=== PATIENT | female | born 1960 | race Caucasian/White ===

== ENCOUNTER 2019-03-05 20:11 | Inpatient (IN) | payer MEDICAID ==
[~2019-03-05] VITALS: Ht 167.6 cm; Wt 94.8 kg
--- NOTE | 2019-03-05 20:29 | NUR ---
TAKEN TO BED 8 FOR BEDSIDE TRIAGE
[2019-03-05 21:29] LABS: BASOPHIL % 0.4 % (0-2); PLATELET COUNT 164 x10^3mcL (130-400); RED CELL DISTRIBUTION WIDTH 13.6 % (11.5-14.5)
[2019-03-05 21:40] LABS: CALCIUM 9.5 mg/dL (8.5-10.1); CARBON DIOXIDE 25.7 mmol/L (21-32); CHLORIDE SERUM 101 mmol/L (98-107); CREATININE SERUM 0.8 mg/dL (0.6-1.0); GFR1 > 60 mL/min; GLUCOSE SERUM 115 mg/dL (74-106); POTASSIUM SERUM 3.4 mmol/L (3.5-5.1); SODIUM SERUM 136 mmol/L (136-145)
[2019-03-05 21:45] LABS: ALBUMIN 3.7 g/dL (3.4-5.0); ALKALINE PHOSPHATASE 89 U/L (46-116); ALT/SGPT 41 U/L (14-59); BILIRUBIN TOTAL 0.3 mg/dL (0.20-1.00); TOTAL PROTEIN, SERUM 8.2 g/dL (6.4-8.2)
[2019-03-05 21:57] LABS: AST/SGOT 38 U/L (15-37)
--- NOTE | 2019-03-05 22:15 | NUR ---
SALINE LOCK INSERTED. FLUID IS INFUSING. PATIENT WAS MEDICATED WITH SOLUMEDRAL.
--- NOTE | 2019-03-05 22:45 | NUR ---
PATIENT COMPLETED #2 BREATHING TREATMENT. NASAL SWAB WAS DONE FOR INFLUENZA.
--- NOTE | 2019-03-05 23:44 | NUR ---
REPORT WAS GIVENT Mau BARNES. PATIENT TRANSPORTED TO ROOM 206B.
[2019-03-05] MEDS ORDERED: LIPITOR10 MG PO (23:45)
[2019-03-05] MEDS ORDERED: PROVENTIL0.09 MG/A1 INH (23:45)
[2019-03-05] MEDS ORDERED: ALBUTEROL1.25 MG/3 NEB (23:46)
[2019-03-06] VITALS (7 sets, daily range): BP systolic 120–158; BP diastolic 66–97; Ht 167.6 cm; Wt 94.8 kg
--- NOTE | 2019-03-06 00:05 | NUR ---
RECEIVED PT FROM ED VIA [employer], CAME IN DUE TO SOB, FEVER AND COUGH X2 DAYS. AAOX4. DENIES HEADACHE/DIZZINESS. ABLE TO FOLLOW COMMANDS. SOB WORSE ON AMBULATION, WHEN PATIENT AMBULATED, O2 SAT=87-89%. WHEN PT SAT DOWN ON THE BED, O2 SAT=98%, RA. PT WAS INITIALLY PLACED ON 2LPM/NC BUT STATED THAT SHE DOES NOT FEEL COMFORTABLE WITH THE OXYGEN, PLACED BACK ON RA, O2 SAT REMAINS AT 97-98%. AUDIBLE WHEEZES NOTED WHEN PT WAS AMBULATING. CRACKLES NOTED ON AUSCULTATION. PRODUCTIVE COUGH NOTED, ABLE TO EXPECTORATE WHITE PHLEGM BY COUGHING. DENIES CHEST PAIN/PRESSURE, SINUS TACHYCARDIA ON THE MONITOR, HR AT 107. DENIES ABDOMINAL DISCOMFORT. VOIDS. IV SITE PATENT AND INTACT. SIDE RAILS UPX2. CALL LIGHT ON REACH. ENDORSED TO PRIMARY NURSE CAMERON FOR CONTINUITY OF CARE
[2019-03-06 00:31] LABS: CHOLESTEROL 185 mg/dL (<200); CHOLESTEROL/HDL RATIO 4.3; HDL CHOLESTEROL 43 mg/dL (40-60)
[2019-03-06 00:34] LABS: TRIGLYCERIDES 529 mg/dL (<150)
[2019-03-06 04:53] LABS: microscopic required? NO
[2019-03-06 05:19] LABS: urine erythrocyte NEGATIVE (NEGATIVE)
[2019-03-06 05:27] LABS: AMPHETAMINE QUAL UR NONE DETECTED (See below)
--- NOTE | 2019-03-06 05:45 | NUR ---
PT C/O 10 BACK AND LEG PAIN AT THIS TIME, REQUESTING PRN NORCO. PT STATES SHE HAS TAKEN NORCO BEFORE, DESPITE ACETAMINOPHEN CODED ALLERGY. PT EDUCATED TO ALERT RN REGARDING AND S&S OF ALLERGIC REACTION. PT AGREED. WILL MEDICATE PER EMAR
--- NOTE | 2019-03-06 06:01 | NUR ---
NO SIGNIFICANT CHANGES TO REPORT, PT COMPLIED WITH NURSING CARE THROUGHOUT THE SHIFT WITH NO ACUTE EVENTS OVERNIGHT. COMFORT AND SAFETY MEASURES MAINAINTED. ALL NEEDS ASSESSED AND ATTENDED TO. CALL LIGHT WITHIN REACH. WILL CONTINUE TO MONITOR AND ENDORSE CARE TO DAY SHIFT NURSE
[2019-03-06 06:27] LABS: BASOPHIL % 0.2 % (0-2); PLATELET COUNT 169 x10^3mcL (130-400)
[2019-03-06 07:03] LABS: CALCIUM 9.1 mg/dL (8.5-10.1); CARBON DIOXIDE 18.2 mmol/L (21-32); CHLORIDE SERUM 103 mmol/L (98-107); CREATININE SERUM 0.9 mg/dL (0.6-1.0); GFR1 > 60 mL/min; GLUCOSE SERUM 207 mg/dL (74-106); MAGNESIUM 1.9 mg/dL (1.8-2.4); PHOSPHOROUS 2.8 mg/dL (2.5-4.9); POTASSIUM SERUM 3.6 mmol/L (3.5-5.1); SODIUM SERUM 138 mmol/L (136-145)
--- NOTE | 2019-03-06 07:21 | NUR ---
REPORT GIVEN TO SIMBA CHANCE. ALL QUESTIONS AND CONCERNS ADDRESSED. ALL CARES ENDORSED
--- NOTE | 2019-03-06 07:30 | NUR ---
RECEIVED HAND OFF REPORT FORM SIMBA BARNES. PATIENT SITTING UP IN BED, A/O X4. NO COMPLAINTS. PAITENT STATES THAT HER BREATHING IS BETTER, BUT STILL GETS SHORT OF BREATH WHEN WALKING. NO WEAKNESS REPORTED. TELE 11 PRESENT ON CHEST SHOWING NSR. CALL LIGHT WITHIN REACH, EDUCATED PATIENT TO USE CALL LIGHT WHEN NEEDING TO AMBULATE FOR ASSISTANCE
--- NOTE | 2019-03-06 09:45 | NUR ---
ADMINSTERED MEDICATION PER MAY. ORDER FOR TRANSFER TO MEDR UNIT. REMOVED TELE 11 FROM PATIENT AND TAKEN TO [employer]. ASSISTED PATIENT TO SIT UP HIGH IN BED. PATIENT STATES THAT HER FAMILY IS SICK AT HOME WITH COLDS AND THIS HAS MADE HER COPD WORSE. STATES THAT BREATHING REMAINS TO BE TOLLERABLE WHEN RESTING. CALL LIGHT WITHIN REACH
--- NOTE | 2019-03-06 14:27 | NUR ---
ADMINSTERED MEDICATIONS PER MAR. PATIENT BREATHING WELL BUT COMPLAINING OF LOWER BACK PAIN. MEDICATED WITH PRN NORCO. ASSITED PATIENT TO SIT HIGH IN BED FOR EASE OF BREATHING
--- NOTE | 2019-03-06 19:25 | NUR ---
PATIENT SITTING UP IN BED. GAVE HAND OFF REPORT TO NIGHT NURSE. QUESTIONS ANSWERED, CARE ENDORSE
--- NOTE | 2019-03-06 19:25 | NUR ---
PT RECEIVED SITTING UP IN BED WITH SON AT BEDSIDE. PT A/O X4, ABLE TO MAKE NEEDS KNOWN. MED-SURG, NO TELE, PT DENIES ANY CP/PRESSURE. PULSES PALPABLE, NO EDEMA PRESENT. BREATHING IS EVEN AND UNLABORED ON RA, PT REPORTS SOB UPON EXERTION, BUT DENIES ANY AT THIS TIME. ABD SOFT AND ROUND, DENIES N/V. VOIDS FREELY, BRP. AMBULATORY WITH STEADY GAIT. SKIN IS WARM AND DRY, INTACT. PT DENIES HAVING ANY PAIN AT THIS TIME. SL TO LH, PATENT AND INTACT. NO ACUTE DISTRESS NOTED. BED IN LOWEST SETTING, SIDE RAILS UP X2, CALL LIGHT WITHIN REACH. WILL CONT TO MONITOR.
--- NOTE | 2019-03-06 21:18 | NUR ---
PT C/O 10/10 BACKPAIN, PRN NORCO GIVEN PER EMAR. NO ACUTE DISTRESS NOTED. WILL CONT TO MONITOR.
--- NOTE | 2019-03-07 01:00 | NUR ---
PT RESTING IN BED WITH EYES CLOSED, BUT IS EASILY AROUSABLE. BREATHING IS EVEN AND UNLABORED ON RA, NO RESP DISTRESS NOTED. NO S/S OF PAIN OBSERVED. SL TO LH INTACT. NO ACUTE DISTRESS NOTED. CALL LIGHT WITHIN REACH. WILL CONT TO MONITOR.
[2019-03-07 05:59] VITALS: BP 129/60
[2019-03-07 06:16] LABS: PLATELET COUNT 172 x10^3mcL (130-400); RED CELL DISTRIBUTION WIDTH 14.1 % (11.5-14.5)
[2019-03-07 07:09] LABS: CALCIUM 9.5 mg/dL (8.5-10.1); CARBON DIOXIDE 24.8 mmol/L (21-32); CHLORIDE SERUM 105 mmol/L (98-107); CREATININE SERUM 0.7 mg/dL (0.6-1.0); GFR1 > 60 mL/min; GLUCOSE SERUM 146 mg/dL (74-106); MAGNESIUM 2.4 mg/dL (1.8-2.4); PHOSPHOROUS 3.2 mg/dL (2.5-4.9); SODIUM SERUM 137 mmol/L (136-145)
--- NOTE | 2019-03-07 07:36 | NUR ---
PT SLEPT AT INTERVALS THROUGHOUT THE EVENING. BREATHING IS EVEN AND UNLABORED, NO RESP DISTRESS NOTED. PT DENIES HAVING ANY PAIN AT THIS TIME. IV TO LH, PATENT AND INTACT. NO ACUTE CHANGES ENCOUTNERED DURING SHIFT. ALL NEEDS MET AND ANTICIPATED. CALL LIGHT WITHIN REACH. CONTINUITY OF CARE ENDORSED TO AM NURSE. ALL QUESTIONS AND CONCERNS ADDRESSED.
[2019-03-07 07:49] LABS: BAND NEUTROPHIL 0 % (0-10); BASOPHIL 0 % (0-2); MONOCYTE 2 % (0-7); SEGMENTED NEUTROPHILS 91 % (37-75)
[2019-03-07 07:51] LABS: PLATELET MORPHOLOGY PLATELETS NORMAL; rbc morphology (normal/abnorm) ABNORMAL (NORMAL)
--- NOTE | 2019-03-07 08:00 | NUR ---
RECEIVED PATIENT A/A/OX4; CLEAR SPEECH. NO SOB ON RA. BREATHING SOUND DIMINISHED WITH COARSE CRAKLES AND WHEEZING SOUND. REPORTED PRODUCTIVE COUGH W/ SCANT YELLOWISH SPUTUM. DENIED CHEST PAIN. IVHL'D TO L HAND. SITE CLEAN. OBESE, AMBULATORY. NO S/S OF PAIN NOW. CALL LIGHT IN REACH.
[2019-03-07 08:40] VITALS: BP 130/67
--- NOTE | 2019-03-07 09:04 | NUR ---
C/O BACK PAIN ON 09/11; NORCO 7.5/325 PO GIVEN. CONTINUE MONITOR.
[2019-03-07 12:32] VITALS: BP 130/58
[2019-03-07 16:38] VITALS: BP 121/69
[2019-03-07 16:39] VITALS: BP 135/66
--- NOTE | 2019-03-07 17:56 | NUR ---
C/O BACK PAIN ON 08/12; NORCO 7.5/325 PO GIEVN. CONTINUE MONITOR.
--- NOTE | 2019-03-07 18:48 | NUR ---
CONDITION STABLE. NO SOB ON RA. OCCASIONAL PRODUCTIVE COUGHING W/ SMALL AMOUNT YELLOW SPUTUM. O2 SAT 96% ON RA. ENORSED CARE TO NOC NURSE.
--- NOTE | 2019-03-07 19:10 | NUR ---
RECEIVED PT FROM AMANDA COTTRELL. PT IS AAOX4 AND DENIES HEADACHE OR DIZZINESS AT THIS TIME. PT IS MED-SURG AND DENIES CHEST PAIN OR PRESSURE AT THIS TIME. PT PULSES PALPABLE AND CAP REFILL <3 SEC. PT IS ON HEPARIN SQ. PT LUNG SOUNDS ARE COURSE CRACKLES/WHEEZING UPON AUSCULTATION. PT IS ON RA. PT DENIES SOB OR RESPIRATORY DISTRESS AT THIS TIME. PT ABD SOFT AND ROUND. PT BOWEL SOUNDS ACTIVE X4. PT DENIES N/V/D AT THIS TIME. PT VOIDS FREELY WITH BRP. PT IS AMBULATORY. PT SKIN IS INTACT. PT IV IS PATENT, INTACT, AND SL AT THIS TIME. CALL LIGHT WITHIN REACH. BED IN LOWEST POSITION. SIDE RAILS X2 UP. WILL CONTINUE TO MONITOR.
[2019-03-07 20:56] VITALS: BP 136/73
--- NOTE | 2019-03-07 22:33 | NUR ---
PT AWAKE WATCHING TV AT THIS TIME. NO ACUTE DISTRESS NOTED. PT BREATHING EVEN AND UNLABORED. CALL LIGHT WITHIN REACH. BED IN LOWEST POSITION. SIDE RAILS X2 UP. WILL CONTINUE TO MONITOR.
--- NOTE | 2019-03-08 01:06 | NUR ---
PT SLEEPING, BUT EASILY AROUSABLE. NO ACUTE DISTRESS NOTED. PT BREATHING EVEN AND UNLABORED. CALL LIGHT WITHIN REACH. BED IN LOWEST POSITION. SIDE RAILS X2 UP. WILL CONTINUE TO MONITOR.
[2019-03-08 05:39] VITALS: BP 127/81
[2019-03-08 06:25] LABS: PLATELET COUNT 179 x10^3mcL (130-400)
[2019-03-08 06:30] LABS: BASOPHIL % 0 % (0-2); RED CELL DISTRIBUTION WIDTH 14.6 % (11.5-14.5)
--- NOTE | 2019-03-08 06:37 | NUR ---
PT SLEPT IN INTERVALS THROUGHOUT THE NIGHT. PT COMPLIED WITH NURSING CARE THROUGHOUT THE SHIFT. NO ACUTE DISTRESS NOTED DURING THE SHIFT. COMFORT AND SAFETY MEASURES MAINTAINED. ALL NEEDS AND CONCERNS ADDRESSED. WILL ENDORSE TO DAY SHIFT NURSE. WILL CONTINUE TO MONITOR.
[2019-03-08 06:43] LABS: CALCIUM 9.3 mg/dL (8.5-10.1); CARBON DIOXIDE 28.2 mmol/L (21-32); CHLORIDE SERUM 103 mmol/L (98-107); CREATININE SERUM 0.6 mg/dL (0.6-1.0); GFR1 > 60 mL/min; GLUCOSE SERUM 120 mg/dL (74-106); POTASSIUM SERUM 4.1 mmol/L (3.5-5.1); SODIUM SERUM 138 mmol/L (136-145)
--- NOTE | 2019-03-08 07:13 | NUR ---
ENDORSED CARE TO AMANDA COTTRELL. ALL QUESTIONS AND CONCERNS ADDRESSED.
--- NOTE | 2019-03-08 08:00 | NUR ---
SHIFT ASSESSMENT DONE. PATIENT A/A/OX4; DENIED CHEST PAIN. NO RESP DISTRESS ON RA. BREATHING SOUND CLEAR DANIELA. O2 SAT 98%. FINISHED 100% OF BREAKFAST. AMBULATORY. DENIED PAIN IVHL'D TO LT HAND, INTACT. ENCOURAGE TO AMBULATE IN FIELD WAY. CALL LIGHT IN REACH.
[2019-03-08] MEDS ORDERED: PREDNISONE20 MG PO (09:06)
[2019-03-08] MEDS ORDERED: ACETYLCYSTEINE HHN (09:06)
[2019-03-08] MEDS ORDERED: ROBL PO (09:07)
[2019-03-08] MEDS ORDERED: LEVOFLOXACIN500 M1 PO (09:07)
[2019-03-08 09:25] VITALS: BP 107/66
[2019-03-08 12:25] VITALS: BP 107/66
[2019-03-08 12:36] VITALS: BP 129/69
--- NOTE | 2019-03-08 15:00 | NUR ---
NO RESP DISTRESS ON RA. D/C TO HOME PER ORDER. INSTRUCTION GIVEN. IV D/C'D. OVER NEEDLE CATHETER INTACT. CONDITION STABLE.
== END 2019-03-08 14:59 | disposition home or self-care (01) | DRG 202 ==
LOC: ED 20:11 → MU 23:09 → DU 23:09 → MU 03-06 09:35
PROVIDERS: Emergency Medicine; ADMIT Internal Medicine
DX: J20.9 Acute bronchitis, unspecified (principal); J44.1 Chronic obstructive pulmonary disease with (acute) exacerbation; R04.2 Hemoptysis; J44.0 Chronic obstructive pulmonary disease with (acute) lower respiratory infection; E87.6 Hypokalemia; E86.0 Dehydration; R74.0 Nonspecific elevation of levels of transaminase and lactic acid dehydrogenase [LDH]; F14.21 Cocaine dependence, in remission; F12.21 Cannabis dependence, in remission; F17.210 Nicotine dependence, cigarettes, uncomplicated; Z79.51 Long term (current) use of inhaled steroids; Z88.8 Allergy status to other drugs, medicaments and biological substances; E78.5 Hyperlipidemia, unspecified
CPT/HCPCS: 36600; 83880; 87804; 94150; G0378; J0132; J1644; J1956; J2920; J2930; J7030; J7613; J7644; Q0092